=== PATIENT | male | born 1985 | race African-American/Black ===

== ENCOUNTER → 2017-12-16 | Outpatient (REF) | payer OTHER ==
[2017-12-16 11:21] LABS: IMMOTILITY 45 %; NON PROGRESSIVE MOTILITY (c) 7 %; PROGRESSIVE MOTILITY (a) 48 % (>=32); SEMEN APPEARANCE OPAQUE (OPAQUE); SEMEN VISCOSITY LIQUID (LIQUID); SEMEN VOLUME 1.5 ml (4.0-5.0); SEMEN pH 8.5 (7.0-8.0); TOTAL MOTILITY 55 % (>=40); WBC CONCENTRATION <=1 M/ml (<=1 M/ml)
[2017-12-16 11:22] LABS: % NORMAL FORMS 12 % (>=4); SPERM# 224.9 M/Ejac (>=39); TOTAL FUNCTIONAL 28.3 M/Ejac.; TOTAL PROGRESSIVE SPERM 107 M/Ejac.
== END ==
LOC: M LAB REF 11:18
DX: N46.8 Other male infertility (principal)

== ENCOUNTER 2018-04-23 10:45 | Emergency (ER) | payer OTHER ==
[~2018-04-23] VITALS: Ht 188 cm; Wt 97.7 kg
[2018-04-23 10:46] VITALS: BP 143/96
--- NOTE | 2018-04-23 11:16 | REP ---
Clinical: Facial weakness/numbness . Comparison: None . Findings: The ventricles, sulci, and cisterns are normal in position and appearance. Waters-white differentiation is maintained. No acute intracranial hemorrhage, mass/mass effect, pathology or trauma/injury. No evidence for acute infarction. No extra-axial fluid collection. Calvarium is intact. Paranasal sinuses and mastoid air cells are clear. Impression: Normal noncontrast head CT. No evidence for acute intracranial pathology or trauma/injury. Electronically Signed by Sergio Wilcox MD 04/23/2018 11:08 A
[2018-04-23] MEDS ORDERED: PRED20TA PO (11:22)
== END 2018-04-23 11:30 | disposition home or self-care (01) ==
LOC: M ED 10:45
DX: J02.9 Acute pharyngitis, unspecified (principal); G51.0 Bell's palsy; F17.200 Nicotine dependence, unspecified, uncomplicated